=== PATIENT | female | born 1955 ===

== ENCOUNTER 2017-09-07 08:25 | Outpatient (CLI) | payer OTHER ==
[~2017-09-07] VITALS: Ht 152.4 cm; Wt 90.7 kg
[2017-09-07] MEDS ORDERED: LIPO-FLAVONOID1 EACH PO (10:09)
== END 2017-09-07 08:45 | disposition home or self-care (01) ==
LOC: OFIC 805 08:25
DX: H61.23 Impacted cerumen, bilateral (principal); R42 Dizziness and giddiness

== ENCOUNTER 2018-03-08 08:42 | Outpatient (CLI) | payer OTHER ==
[~2018-03-08] VITALS: Ht 152.4 cm; Wt 88.5 kg
[~2018-03-08 08:42] MED LIST: LIPO-FLAVONOID1 EACH PO
== END 2018-03-08 09:00 | disposition home or self-care (01) ==
LOC: OFIC 805 08:42
DX: R42 Dizziness and giddiness (principal); H61.23 Impacted cerumen, bilateral; J31.0 Chronic rhinitis; H93.8X2 Other specified disorders of left ear

== ENCOUNTER 2018-09-27 08:14 | Outpatient (CLI) | payer OTHER ==
[2018-09-27] MEDS ORDERED: DESLORATADINE5 MG PO (09:22)
[2018-09-27] MEDS ORDERED: MECLIZINE HCL25 MG PO (09:23)
== END 2018-09-27 08:30 | disposition home or self-care (01) ==
LOC: OFIC 805 08:14
DX: H81.49 Vertigo of central origin, unspecified ear (principal); H61.23 Impacted cerumen, bilateral; H93.90 Unspecified disorder of ear, unspecified ear; J31.0 Chronic rhinitis

== ENCOUNTER → 2020-01-21 | Outpatient (CLI) | payer OTHER ==
[~2020-01-21] MED LIST changes: +BACIGUENT3.5 GM OTIC; +BACTRIM DS TAB1 EACH PO; +DESLORATADINE5 MG PO; +MECLIZINE HCL25 MG PO
== END | disposition home or self-care (01) ==
LOC: OFIC 805 14:30
PROVIDERS: ATTEND Otolaryngology Otology & Neurotology
DX: H60.02 Abscess of left external ear (principal); H92.02 Otalgia, left ear

== ENCOUNTER 2020-12-24 15:00 | Outpatient (CLI) | payer OTHER | END 2020-12-24 15:30 | disposition home or self-care (01) | LOC: PPH VACUNA 15:00 | PROVIDERS: ATTEND Emergency Medicine Pediatric Emergency Medicine | DX: Z23 Encounter for immunization (principal) ==

== ENCOUNTER → 2021-09-08 | Outpatient (CLI) | payer OTHER ==
[~2021-09-08] MED LIST changes: +ATORVASTATIN CA10 MG PO; +LOSARTAN-HCTZ1 EAC1 PO; +SYNTHROID88 MCG PO; +TOPROL XL50 M1 PO
== END | disposition home or self-care (01) ==
LOC: LAB 07:57
PROVIDERS: ATTEND Surgery
DX: Z20.828 Contact with and (suspected) exposure to other viral communicable diseases (principal); U07.1 COVID-19

== ENCOUNTER 2021-09-11 06:34 | Day surgery (SDC) | payer OTHER ==
[~2021-09-11] VITALS: Ht 157.5 cm; Wt 89.8 kg
== END 2021-09-11 20:20 | disposition home or self-care (01) ==
LOC: CIR.AMB 06:34 → EDBD 07:45 → CIR.AMB 07:45
PROVIDERS: ATTEND Surgery
DX: D05.12 Intraductal carcinoma in situ of left breast (principal); D36.0 Benign neoplasm of lymph nodes; R59.0 Localized enlarged lymph nodes; Z88.8 Allergy status to other drugs, medicaments and biological substances; I10 Essential (primary) hypertension; E78.00 Pure hypercholesterolemia, unspecified; Z86.16 Personal history of COVID-19; J45.909 Unspecified asthma, uncomplicated; E66.9 Obesity, unspecified; E03.9 Hypothyroidism, unspecified
CPT/HCPCS: 19303; 38525; 78195; A9541; L8699